=== PATIENT | male | born 1965 | race African-American/Black ===

== ENCOUNTER 2019-04-11 12:47 | Emergency (ER) | payer MEDICAID, OTHER ==
[~2019-04-11] VITALS: Ht 167.6 cm; Wt 63.5 kg
[~2019-04-11 12:47] MED LIST: ATOR80TA27 PO; CITA-70 PO; METO25TA14 PO; WARF-82 PO
--- NOTE | 2019-04-11 12:47 | NUR ---
Patient BIBA BLS, transferred to bed 12. RN evaluating patient at bedside.
[2019-04-11 12:55] VITALS: BP 112/81
--- NOTE | 2019-04-11 13:00 | NUR ---
JENNIFER Varghese C/O WITNESSED SYNCOPAL EPISODE TODAY APPROX 12:15PM. PER EMS, PT MOTHER WITNESSED PT WALK BACK FROM THE RESTROOM, SIT ON HIS WALKER AND "BLACK OUT" FOR 20-30 SECONDS. PT STATES HE DOES NOT RECALL THIS EPISODE BUT HE FEELS "NORMAL" NOW. PT IS A&OX4, GCS 15. PT REPORTS FEELING WEAK SINCE YESTERDAY, DENIED N/V/D/FEVER. PT SKIN IS COOL/CLAMMY. PT STATES "IM ALWAYS SWEATY". PT REPORTS HX OF STROKE WITH R SIDE WEAKNESS. PT PLACED IN GOWN AND ON BEDSIDE ELECTRONIC WIRER AT THIS TIME.
[2019-04-11] MEDS ORDERED: NACL 0.9% 1,000 ML IV ONE (13:25)
--- NOTE | 2019-04-11 13:27 | NUR ---
blood bank technician at bedside.
[2019-04-11 13:55] LABS: BASOPHILS % (AUTO) 0.4 % (0.0-2.0); EOSINOPHILS # (AUTO) 0.1 K/uL (0-0.4); EOSINOPHILS % (AUTO) 0.7 % (0.0-4.0); HEMATOCRIT 29.4 % (36-52); HEMOGLOBIN 9.5 g/dL (12.0-18.0); LYMPHOCYTES # (AUTO) 0.4 K/uL (2.0-11.5); LYMPHOCYTES % (AUTO) 5.3 % (20.5-51.1); MEAN CORPUSCULAR HEMOGLOBIN 25 pg (27-31); MEAN CORPUSCULAR HGB CONC 32 g/dL (33-37); MEAN CORPUSCULAR VOLUME 75.7 fL (80-94); MONOCYTES # (AUTO) 0.6 K/uL (0.8-1.0); NEUTROPHILS # (AUTO) 6.5 K/uL (1.8-7.7); NEUTROPHILS % (AUTO) 85.6 % (42.2-75.2); PLATELET COUNT (AUTO) 485 K/uL (140-450); RED BLOOD CELL COUNT(AUTO) 3.89 MIL/uL (4.20-6.10); RED CELL DISTRIBUTION WIDTH 16.6 % (11.6-13.7)
--- NOTE | 2019-04-11 14:03 | NUR ---
IV INITIATED TO LEFT HAND 22G, INTACT AND PATENT. PT TOLERATED WELL. ADMINISTERED IV NS 0.9% 1000 ML BOLUS ORDERED.
[2019-04-11 14:19] LABS: WHITE BLOOD COUNT (AUTO) 7.6 K/uL (4.8-10.8)
[2019-04-11 14:52] LABS: PROTHROMBIN TIME 33.2 secs (10.8-13.4)
--- NOTE | 2019-04-11 15:43 | NUR ---
PT STILL UNABLE TO PROVIDE URINE AT THIS TIME
[2019-04-11 16:17] LABS: ANION GAP 11.2 (8-16); CARBON DIOXIDE 29.7 mmol/L (21-32); CREATININE 0.9 mg/dL (0.7-1.3); POTASSIUM 3.9 mmol/L (3.5-5.1)
[2019-04-11 16:23] LABS: ALBUMIN 1.8 g/dL (3.4-5.0); TOTAL BILIRUBIN 0.4 mg/dL (0.0-1.0)
--- NOTE | 2019-04-11 16:53 | NUR ---
PT CALLED TO [employer]BOARD MOTOR TESTER PT FOR D/C.
--- NOTE | 2019-04-11 17:28 | NUR ---
Patient discharged with v/s stable. Written and verbal after care instructions given and explained. Patient verbalized understanding. Wheel Chair Assisted with FAMILY to car. All questions addressed prior to discharge. Advised to follow up with PMD.
[2019-04-11 17:30] VITALS: BP 128/86
== END 2019-04-11 17:20 | disposition home or self-care (01) ==
LOC: MED 12:47
DX: E86.0 Dehydration (principal); D50.9 Iron deficiency anemia, unspecified; I10 Essential (primary) hypertension; Z86.73 Personal history of transient ischemic attack (TIA), and cerebral infarction without residual deficits; Z79.899 Other long term (current) drug therapy
CPT/HCPCS: 36415; 71045; 80053; 83880; 84484; 85025; 85610; 85730; 93005; 96360; 99284; J7030; Q0092